=== PATIENT | female | born 1985 | race Hispanic/Latino ===

== ENCOUNTER 2021-04-02 13:57 | Emergency (ER) | payer OTHER, MEDICAID ==
[~2021-04-02] VITALS: Ht 154.9 cm; Wt 55.0 kg
[~2021-04-02 13:57] MED LIST: CIPROFLOXACN500 MG PO; IRON325 M1 PO; MEDDOSEPAK OR; MIRALAX3350 NF OR; NO HOME MEDS; NORCO1 TA1 PO; PRE-NATAL PO; PRENATAL1 TA1 PO; PYRIDIUM200 MG PO
[2021-04-02 14:58] VITALS: BP 128/65
== END 2021-04-02 14:58 | disposition home or self-care (01) ==
LOC: ED 13:57
DX: S16.1XXA Strain of muscle, fascia and tendon at neck level, initial encounter (principal); M25.511 Pain in right shoulder; M25.561 Pain in right knee; W30.89XA Contact with other specified agricultural machinery, initial encounter; Y92.89 Other specified places as the place of occurrence of the external cause; Y99.0 Civilian activity done for income or pay

== ENCOUNTER 2022-08-29 12:05 | Emergency (ER) | payer MEDICAID ==
[~2022-08-29] VITALS: Ht 154.9 cm; Wt 69.0 kg
[2022-08-29] MEDS ORDERED: OFLOXACIN0.3 % OU (12:51)
[2022-08-29 13:02] VITALS: BP 148/92
== END 2022-08-29 13:03 | disposition home or self-care (01) ==
LOC: ED 12:05
DX: H10.9 Unspecified conjunctivitis (principal)

== ENCOUNTER 2022-10-09 23:02 | Emergency (ER) | payer MEDICAID ==
[~2022-10-09] VITALS: Ht 154.9 cm; Wt 63.0 kg
[~2022-10-09 23:02] MED LIST changes: +OFLOXACIN0.3 % OU
[2022-10-09 23:18] VITALS: BP 112/51
[2022-10-09 23:31] VITALS: BP 120/42
[2022-10-09 23:45] VITALS: BP 114/74
[2022-10-09 23:46] LABS: BASO% 0.3 % (0-3); EOS% 0.5 % (0-8); HEMATOCRIT 35.4 % (37.0-47.0); HEMOGLOBIN 11.9 g/dl (12.0-16.0); IMMATURE GRANULOCYTES 0.1 % (0.0-5.0); LYMPH% 15.2 % (15-41); MEAN CELL VOLUME 91.2 fL CALC (80.0-100.0); MEAN CORPUSCULAR HGB 30.7 pG CALC (26.0-32.0); MEAN CORPUSCULAR HGB CONC 33.6 g/dL CAL (32.0-36.0); NEUT# 8.02 thou/uL (2.00-7.15); NEUT% 79.9 % (42-76); RED BLOOD COUNT 3.88 mill/uL (4.20-5.60); RED CELL DISTRI WIDTH 11.9 % (11.5-15.5)
[2022-10-09 23:57] LABS: ANION GAP 13 (6-22 (CALC)); BILIRUBIN, TOTAL 0.6 mg/dL (0.02-1.3); BUN 7 mg/dL (7-17); BUN/CREATININE RATIO 12 (12-20 (CALC)); CARBON DIOXIDE 22 mmol/l (22-30); CHLORIDE 102 mmol/l (95-108); CREATININE 0.6 mg/dL (0.5-1.0); GFR FOR AFR.AMER. > 60 ML/MIN (>=60 (CALC)); GFR OTHER RACES > 60 ML/MIN (>=60 (CALC)); POTASSIUM 3.8 mmol/l (3.5-5.1); SGOT/AST 23 u/l (14-36); SODIUM 133 mmol/l (137-146); TOTAL PROTEIN 7.6 g/dL (6.3-8.2)
[2022-10-10] VITALS (7 sets, daily range): BP systolic 100–119; BP diastolic 42–71
[2022-10-10 00:08] LABS: ALBUMIN 4.4 g/dL (3.2-5.0); ALKALINE PHOSPHATASE 67 u/l (38-126)
== END 2022-10-10 00:54 | disposition home or self-care (01) ==
LOC: ED 23:02
PROVIDERS: Family Medicine
DX: R55 Syncope and collapse (principal)

== ENCOUNTER 2022-12-30 15:42 | Emergency (ER) | payer MEDICAID ==
[~2022-12-30] VITALS: Ht 154.9 cm; Wt 63.9 kg
[2022-12-30] VITALS (12 sets, daily range): BP systolic 108–139; BP diastolic 63–102
[2022-12-30 18:14] LABS: BASO% 0.2 % (0-3); EOS% 0.7 % (0-8); HEMATOCRIT 36.8 % (37.0-47.0); HEMOGLOBIN 12.5 g/dl (12.0-16.0); IMMATURE GRANULOCYTES 0.1 % (0.0-5.0); MEAN CELL VOLUME 91.1 fL CALC (80.0-100.0); MEAN CORPUSCULAR HGB 30.9 pG CALC (26.0-32.0); MONO% 4.9 % (2-13); NEUT# 6.55 thou/uL (2.00-7.15); NEUT% 78.1 % (42-76); RED BLOOD COUNT 4.04 mill/uL (4.20-5.60); RED CELL DISTRI WIDTH 12.1 % (11.5-15.5)
[2022-12-30 18:16] LABS: URINE BILIRUBIN - DIPSTICK NEGATIVE (NEGATIVE); URINE BLOOD DIPSTICK SMALL (NEGATIVE); URINE COLOR YELLOW; URINE GLUCOSE - DIPSTICK NEGATIVE (NEGATIVE); URINE KETONE NEGATIVE (NEGATIVE); URINE LEUK ESTERASE NEGATIVE (NEGATIVE); URINE PROTEIN - DIPSTICK NEGATIVE (NEG-TRACE); URINE UROBILINOGEN - DIPSTICK 0.2 E.U./dL (0.2)
[2022-12-30 18:25] LABS: URINE NITRITE - DIPSTICK NEGATIVE (Negative); URINE SQUAMOUS EPITHELIAL CELL FEW EPI/hpf (0-FEW); URINE WBC 0-2 WBC/hpf (0-5)
[2022-12-30 18:26] LABS: URINE MUCUS FEW hpf (NONE-FEW)
[2022-12-30 18:29] LABS: ALBUMIN 4.8 g/dL (3.2-5.0); ALKALINE PHOSPHATASE 87 u/l (38-126); ANION GAP 14 (6-22 (CALC)); BUN 11 mg/dL (7-17); BUN/CREATININE RATIO 17 (12-20 (CALC)); CARBON DIOXIDE 24 mmol/l (22-30); CHLORIDE 103 mmol/l (95-108); CREATININE 0.6 mg/dL (0.5-1.0); GFR FOR AFR.AMER. > 60 ML/MIN (>=60 (CALC)); GFR OTHER RACES > 60 ML/MIN (>=60 (CALC)); LIPASE 70 u/l (23-300); POTASSIUM 3.9 mmol/l (3.5-5.1); SGOT/AST 23 u/l (14-36); SODIUM 138 mmol/l (137-146); TOTAL PROTEIN 8.4 g/dL (6.3-8.2)
[2022-12-30 18:38] LABS: BILIRUBIN, TOTAL 0.2 mg/dL (0.02-1.3)
== END 2022-12-30 21:43 | disposition short-term general hospital (02) ==
LOC: ED 15:42
PROVIDERS: Nurse Practitioner
DX: O00.101 Right tubal pregnancy without intrauterine pregnancy (principal)

== ENCOUNTER 2024-09-29 19:36 | Emergency (ER) | payer SELFPAY ==
[~2024-09-29] VITALS: Ht 154.9 cm; Wt 66.0 kg
[2024-09-29] MEDS ORDERED: FLUORESCEIN SODIUM 1 MG EA OU ONE (20:10)
[2024-09-29] MEDS ORDERED: TETRACAINE HCL 0.5 %/4 ML SOL OU ONE (20:10)
[2024-09-29] MEDS ORDERED: GENTAMICIN0.3 % OS (20:39)
[2024-09-29] MEDS ORDERED: GENTAMICIN SULFATE (OPHTH) 5 ML BTL OS ONE (20:40)
[2024-09-29 21:20] VITALS: BP 136/86
== END 2024-09-29 21:20 | disposition home or self-care (01) | DRG 125 ==
LOC: ED 19:36
DX: S05.02XA Injury of conjunctiva and corneal abrasion without foreign body, left eye, initial encounter (principal); X58.XXXA Exposure to other specified factors, initial encounter; Y92.73 Farm field as the place of occurrence of the external cause; Y99.0 Civilian activity done for income or pay